=== PATIENT | female | born 1990 | race Caucasian/White ===

== ENCOUNTER → 2017-01-29 | Outpatient (CLI) | payer BC ==
[2017-01-29 17:47] LABS: CH 29.8; CHCM 35.7; HCT 34.6 % (34.0-46.0); HDW 3.06; HGB 12.4 gm/dL (11.4-16.0); MCH 30.2 pg (25.0-35.0); Mean Platelet Volume 8.5; RBC 4.12 m/uL (3.80-5.40); RDW 13.5 % (11.5-15.5); WBC 9.4 k/uL (3.8-10.6)
[2017-01-29 17:57] LABS: Glucose 95 mg/dL (74-99); Non-African American GFR(MDRD) >60 (>60 ml/min/1.73 sqM)
== END | disposition home or self-care (01) ==
LOC: LABWHC1 17:31
PROVIDERS: ATTEND Obstetrics & Gynecology
DX: Z34.80 Encounter for supervision of other normal pregnancy, unspecified trimester (principal)
CPT/HCPCS: 36415; 82565; 82947; 85027; 86762; 86780; 86850; 86900; 86901; 87340

== ENCOUNTER → 2017-02-07 | Outpatient (CLI) | payer BC ==
--- NOTE | 2017-02-08 07:16 | US ---
EXAMINATION TYPE: US OB anatomy transabd DATE OF EXAM: 02/07/2017 4:59 PM COMPARISON: NONE HISTORY: O36.62X0 Large for Dates TECHNIQUE: Transabdominal (TA) EXAM MEASUREMENTS: GESTATIONAL AGE / DATING Physician Established: (17 weeks/5 days) EDC: 07/13/2017 Dates by LMP: (17 weeks/5 days) EDC: 07/13/2017 Dates by First Scan: no previous Dates by Current Scan for: (18 weeks/3 days) EDC: 07/08/2017 SURVEY IUP: Single PLACENTA: Anterior PREVIA: No previa COLT: 12.4 cm Normal CERVICAL LENGTH (transabdominal: norm > 3.0cm): 3.2 cm BIOMETRY PRESENTATION: Variable LIE: Oblique BPD: 4.3 cm 18 weeks / 6 days HC: 15.0 cm 18 weeks / 1 days AC: 12.5 cm 18 weeks / 1 days FL: 2.8 cm 18 weeks / 4 days ESTIMATED WEIGHT IN GRAMS: 235 grams ESTIMATED WEIGHT IN LBS/OZS: 0 lbs. 8 oz. WEIGHT PERCENTAGE BASED ON ESTABLISHED DATE: 82 % HC/AC: 1.2 FL/AC: 22 HEART RATE: 157 bpm RHYTHM: Normal ANATOMY SEEN (within normal limits): * Lateral Vent (< 1 cm) 0.7 cm * Cisterna Magna (< 1.1 cm) 0.4 cm * Nuchal Fold (< 0.6 cm) 0.4 cm * Cerebellum (varies with age) 1.9 cm Choroid Plexus (bilateral) Midline Falx Cavus Septi Pellucidi Four Chamber Heart Outflow tracts: LVOT/ Stomach Situs Nose / Lips not well seen Diaphragm Kidneys (bilateral) Bladder Cord Insert Three Vessel Cord Longitudinal Spine Transverse Spine Arms (bilateral) Legs (bilateral) ANATOMY NOT SEEN: RVOT positional, lips and nose not well seen Growth congruent with gestation of 18 + weeks. Call back for lips and nose, RVOT IMPRESSION: Single viable intrauterine corresponding to an ultrasound age dated 18 weeks 3 days with es timated date of delivery 08 July 2017 by today's exam. Somewhat limited survey.
== END | disposition home or self-care (01) ==
LOC: RADUSWWP 16:16
PROVIDERS: ATTEND Obstetrics & Gynecology
DX: O36.62X0 Maternal care for excessive fetal growth, second trimester, not applicable or unspecified (principal); Z3A.18 18 weeks gestation of pregnancy
CPT/HCPCS: 76811

== ENCOUNTER → 2017-03-14 | Outpatient (CLI) | payer BC ==
--- NOTE | 2017-03-15 12:02 | US ---
EXAMINATION TYPE: US OB anatomy transabd DATE OF EXAM: 03/14/2017 5:23 PM COMPARISON: NONE HISTORY: Z36 Re-eval TECHNIQUE: Transabdominal (TA) EXAM MEASUREMENTS: GESTATIONAL AGE / DATING Physician Established: (23 weeks/3 days) EDC: 07/08/17 Dates by LMP: (22 weeks/5 days) EDC: 07/13/17 Dates by First Scan: Not available Dates by Current Scan for: (22 weeks/5 days) EDC: 07/13/17 SURVEY IUP: Single PLACENTA: fundal/anterior PREVIA: No previa COLT: 13.3 cm CERVICAL LENGTH (transabdominal: norm > 3.0cm): 3.4 cm BIOMETRY PRESENTATION: Vertex BPD: 5.5 cm 22 weeks / 5 days HC: 20.7 cm 22 weeks / 6 days AC: 18.2 cm 23 weeks / 0 days FL: 4.1 cm 23 weeks / 2 days ESTIMATED WEIGHT IN GRAMS: 561 grams ESTIMATED WEIGHT IN LBS/OZS: 1 lbs. 4 oz. WEIGHT PERCENTAGE BASED ON ESTABLISHED DATE: 26 % HC/AC: 1.1 FL/AC: 22.5 HEART RATE: 162 bpm RHYTHM: Normal ANATOMY SEEN (within normal limits): * Cisterna Magna (< 1.1 cm) 0.5 cm * Nuchal Fold (< 0.6 cm) 0.4 cm * Cerebellum (varies with age) 2.3 cm Midline Falx Four Chamber Heart RVOT Stomach Nose / Lips Diaphragm Kidneys (bilateral) Bladder Cord Insert Three Vessel Cord Longitudinal Spine Transverse Spine ANATOMY NOT SEEN: Very active fetus, position * Lateral Vent (< 1 cm) cm Choroid Plexus (bilateral) Arms (bilateral) Legs (bilateral) Situs LVOT Cavus Septi Pellucidi IMPRESSION: Single viable uterine .
== END | disposition home or self-care (01) ==
LOC: RADUSWWP 16:26
PROVIDERS: ATTEND Obstetrics & Gynecology
DX: Z36 Encounter for antenatal screening of mother (principal); Z3A.22 22 weeks gestation of pregnancy
CPT/HCPCS: 76811

== ENCOUNTER → 2017-04-12 | Outpatient (CLI) | payer BC ==
[2017-04-12 08:09] LABS: CH 28.9; CHCM 34.9; HCT 32.7 % (34.0-46.0); HDW 3.68; HGB 11.5 gm/dL (11.4-16.0); MCH 29.1 pg (25.0-35.0); MCV 83.1 fL (80.0-100.0); Mean Platelet Volume 7.9; Poikilocytosis Slight; RBC 3.94 m/uL (3.80-5.40); WBC 9.6 k/uL (3.8-10.6)
== END | disposition home or self-care (01) ==
LOC: LABWHC1 06:30
PROVIDERS: ATTEND Obstetrics & Gynecology
DX: Z34.92 Encounter for supervision of normal pregnancy, unspecified, second trimester (principal)
CPT/HCPCS: 36415; 82950; 85027

== ENCOUNTER → 2017-04-18 | Outpatient (CLI) | payer BC ==
[2017-04-18 12:22] LABS: Glucose 3 Hour, Gest 110 mg/dL
== END | disposition home or self-care (01) ==
LOC: LABWHC1 07:51
PROVIDERS: ATTEND Obstetrics & Gynecology
DX: O99.810 Abnormal glucose complicating pregnancy (principal); Z3A.00 Weeks of gestation of pregnancy not specified
CPT/HCPCS: 36415; 82951; 82952

== ENCOUNTER 2017-05-09 21:00 | Outpatient (CLI) | payer BC | END 2017-05-09 22:10 | disposition home or self-care (01) | LOC: FBPOP 21:00 | PROVIDERS: ATTEND Obstetrics & Gynecology | DX: O36.8130 Decreased fetal movements, third trimester, not applicable or unspecified (principal); Z3A.31 31 weeks gestation of pregnancy | CPT/HCPCS: 59025; 99213 ==

== ENCOUNTER 2017-06-03 19:31 | Outpatient (CLI) | payer BC ==
[2017-06-03 19:58] LABS: Amorphous Sediment,Urine Few /hpf; Appearance,Urine Cloudy (Clear); Bilirubin,Urine Negative (Negative); Glucose,Urine (UA) Negative (Negative); Ketones,Urine Negative (Negative); Leukocyte Esterase,Urine Negative (Negative); Nitrite,Urine Negative (Negative); PH, Urine 6.5 (5.0-8.0); Particle Count 11406; Protein,Urine Negative (Negative); RBC,Urine 1 /hpf (0-5); Specific Gravity,Urine 1.001 (1.001-1.035); Squamous Epithelial Cell,Urine 10 /hpf (0-4); UA Billing (MACRO vs. MICRO) MICRO; Urobilinogen,Urine <2.0 mg/dL (<2.0); WBC,Urine 3 /hpf (0-5)
--- NOTE | 2017-06-04 06:32 | P.MSEPDOC ---
Presenting Problems - Arrival Data Date of Arrival on Unit: 06/03/17 Time of Arrival on Unit: 19:31 Mode of Transport: Ambulatory - Complaint OB-Reason for Admission/Chief Complaint: Observation/Evaluation, Signs/Symptoms UTI Comment: cramping since yesterday Medical History - Information : 3 Para: 1 Term: 1 : 0 Abortions: Spontaneous or Elective: 1 Number of Living Children: 1 - Gestational Age Expected Date of Delivery: 07/05/17 Gestational Age by YUKI (wks/days): 35 Weeks and 4 Days Review of Systems - Review of Systems Constitutional: No problems Breast: No problems ENT: No problems Cardiovascular: No problems Respiratory: No problems Gastrointestinal: No problems Genitourinary: No problems Musculoskeletal: No problems Neurological: No problems Skin: No problems Medical Screen Scoring (Pre) - Cervical Exam Dilation: 0 cm = 0 Membranes: Intact - Uterine Contractions Frequency: > 5 minutes apart = 1 Duration: N/A Intensity: N/A - Maternal Vital Signs Maternal Temperature: N/A Maternal Blood Pressure: N/A Signs of Preeclampsia: N/A Maternal Respirations: N/A - Maternal Trauma Maternal Trauma: N/A - Assessment Baseline FHR: 145 Heart Rate - NICHD Category: Category I (Normal) = 0 NST: Reactive - Total Score Total Score (Pre): 1 - Level of Risk Level of Risk: Low (0-5) Physician Notification (Pre) - Physician Notified Physician Notified Date: 06/03/17 Physician Notified Time: 20:14 Physician/Practitioner Notifed:: Dr Crawford New Order Received: Yes (d/c home) Disposition - Disposition OB Disposition: Discharge to home, Written follow up instructions reviewed Discharge Date: 06/03/17 Discharge Time: 20:20 I agree with the RN Medical Screening Exam: Yes Risk & Benefit of care provided described in d/c instruction: Yes Diagnosis: FALSE LABOR BEFORE 37 COMPLETED WEEKS OF GEST, THIRD TRI
== END 2017-06-03 20:20 | disposition home or self-care (01) ==
LOC: FBPOP 19:31
PROVIDERS: ATTEND Obstetrics & Gynecology
DX: O47.03 False labor before 37 completed weeks of gestation, third trimester (principal); Z3A.35 35 weeks gestation of pregnancy
CPT/HCPCS: 59025; 81001; 99213

== ENCOUNTER 2017-06-30 20:02 | Inpatient (IN) | payer BC ==
[2017-06-30 20:39] LABS: Basophils % (A) 0 %; CH 25.8; CHCM 33.1; Eosinophils # (A) 0.1 k/uL (0-0.7); Eosinophils % (A) 1 %; HCT 31.5 % (34.0-46.0); HDW 3.42; HGB 10.2 gm/dL (11.4-16.0); Hypochromasia Slight; Luc # (Auto) 0.15; Luc % (Auto) 2; Lymphocytes # (A) 1.5 k/uL (1.0-4.8); Lymphocytes % (A) 19 %; MCH 25.2 pg (25.0-35.0); MCHC 32.3 g/dL (31.0-37.0); MCV 78.2 fL (80.0-100.0); Mean Platelet Volume 10.4; Monocytes # (A) 0.3 k/uL (0-1.0); Monocytes % (A) 4 %; Neutrophils # (A) 6.1 k/uL (1.3-7.7); Neutrophils % (A) 74 %; Poikilocytosis Slight; RBC 4.03 m/uL (3.80-5.40); RDW 14.9 % (11.5-15.5); WBC 8.2 k/uL (3.8-10.6); WBC (Perox) 8.59
[2017-06-30 20:48] LABS: ALT 40 U/L (9-52); AST 26 U/L (14-36); Blood Urea Nitrogen 9 mg/dL (7-17); LDH 414 U/L (313-618); Non-African American GFR(MDRD) >60 (>60 ml/min/1.73 sqM); Uric Acid 4.9 mg/dL (3.7-7.4)
[2017-06-30 21:00] LABS: Appearance,Urine Turbid (Clear); Bacteria,Urine Rare /hpf; Bilirubin,Urine Negative (Negative); Glucose,Urine (UA) Negative (Negative); Ketones,Urine Negative (Negative); Leukocyte Esterase,Urine Trace (Negative); Mucus,Urine Rare /hpf; Nitrite,Urine Negative (Negative); Particle Count 36579; Protein,Urine Trace (Negative); Specific Gravity,Urine 1.013 (1.001-1.035); Squamous Epithelial Cell,Urine 9 /hpf (0-4); UA Billing (MACRO vs. MICRO) MICRO; Urobilinogen,Urine <2.0 mg/dL (<2.0)
[2017-06-30] MEDS ORDERED: TERBUTALINE 1 MG/ML VIAL SQ PRN (22:29)
[2017-06-30] MEDS ORDERED: LIDOCAINE 1% (PF) 10 MG/ML (30 ML SDV) SQ PRN (22:29)
[2017-06-30] MEDS ORDERED: CARBOPROST TROMETHAMINE 250 MCG/ML 1 ML AMP IM PRN (22:29)
[2017-06-30] MEDS ORDERED: METHYLERGONOVINE 0.2 MG/ML 1 ML AMP IM PRN (22:29)
[2017-06-30] MEDS ORDERED: ACETAMINOPHEN TAB 500 MG TAB PO PRN (22:34)
[2017-06-30 22:55] LABS: INR 0.9 (<1.2); Partial Thromboplastin Time 22.3 sec (22.0-30.0); Prothrombin Time 9.3 sec (9.0-12.0)
[2017-07-01] MEDS ORDERED: CALCIUM CARBONATE 500 MG CHEWABLE PO PRN (02:41)
[2017-07-01] MEDS ORDERED: OXYTOCIN 20 UNITS/1000 ML NS 1,000 ML IV SCH (06:00)
[2017-07-01] MEDS ORDERED: OXYTOCIN 10 UNIT/ML 1 ML VIAL IM PRN (06:00)
[2017-07-01] MEDS: LACTATED RINGERS 1,000 ML IV SCH ×3 (06:07→15:33)
[2017-07-01] MEDS ORDERED: BUTORPHANOL 1 MG/ML 1 ML VIAL IV PRN (13:16)
[2017-07-01] MEDS ORDERED: SODIUM CHLORIDE 0.9% 100 ML BAG ONE (14:55)
[2017-07-01] MEDS ORDERED: fentaNYL (PF) 50 MCG/ML 5 ML AMP ONE (14:55)
[2017-07-01] MEDS ORDERED: BUPIVACAINE (PF) 0.25% 30 ML VIAL ONE (14:55)
[2017-07-01] MEDS ORDERED: BUPIVACAINE (PF) 0.25% 25 ML, fentaNYL (PF) 200 MCG in SODIUM CHLORIDE 0.9% 71 ML EPIDURAL ONE (15:13)
[2017-07-01] MEDS ORDERED: BISACODYL 10 MG SUPP RECTAL PRN (17:32)
[2017-07-01] MEDS ORDERED: SIMETHICONE 80 MG CHEWABLE PO PRN (17:32)
[2017-07-01] MEDS ORDERED: diphenhydrAMINE 50 MG CAP PO PRN (17:32)
[2017-07-01] MEDS ORDERED: HYDROCORTISONE 2.5% RECTAL CREAM 30 GM TUBE RECTAL PRN (17:32)
[2017-07-01] MEDS ORDERED: ZOLPIDEM 5 MG TAB PO PRN (17:32)
[2017-07-01] MEDS ORDERED: ACETAMINOPHEN TAB 325 MG TAB PO PRN (17:32)
[2017-07-01] MEDS ORDERED: BENZOCAINE/MENTHOL SPRAY 1 GM/SPRAY AEROSOL TOPICAL PRN (17:32)
[2017-07-01] MEDS ORDERED: diphenhydrAMINE 25 MG CAP PO PRN (17:32)
[2017-07-01] MEDS ORDERED: LANOLIN CREAM 5 GM TUBE TOPICAL PRN (17:32)
[2017-07-01] MEDS ORDERED: diphenhydrAMINE 50 MG/ML 1 ML VIAL IVP PRN ×2 (17:32)
[2017-07-01] MEDS ORDERED: WITCH HAZEL 1 EACH MED..PAD TOPICAL PRN (17:32)
[2017-07-01] MEDS ORDERED: Acetaminophen-Codeine 300-30mg TAB PO PRN ×2 (17:32)
--- NOTE | 2017-07-01 17:36 | P.HPOB ---
History of Present Illness H&P Date: 07/01/17 Chief Complaint: Intrauterine at term: Gestational hypertension Tiffanie is a 27-year-old female at 38 weeks gestation who noted that her blood pressure was elevated while working yesterday. Due to a persistent headache she came into labor and delivery where her initial blood pressure was noted be elevated slightly at 150/80 subsequent blood pressures were all normal. However due to her headache and term we decided to keep her for 2 hours to continue monitoring her and were preeclamptic labs. All the labs were normal however just short of the two-hour vernon she did have 2 blood pressures were elevated in the 140/70-80 range. Therefore she was admitted for plan for induction of labor in the morning since it was already after 10:00 at night when these came in. I did discuss the option of starting an induction during the night that with her blood pressure stable and her headache resolving without any medication the decision to wait until morning was made with the understanding that should her blood pressures continued to go up or changes that we would start induction early. We did start induction with Pitocin and then artificial rupture of membranes was performed clear fluid noted. She was dilated to 1/2 cm 80% effaced -3 station. heart tones were in the 130s and reactive. Her course otherwise was unremarkable. She denied any medical problems during the other than some sciatic nerve pain. Pertinent labs include A+ blood type Rh antibody negative rubella, immune, hepatitis B surface antigen/RPR/HIV all negative. Physical exam vital signs are stable and afebrile. Heart regular, lungs clear, extremities without pain. Osteopathic exams unremarkable. Assessment intrauterine at term with gestational hypertension. Plan expect spontaneous vaginal delivery. She plans to use an epidural for analgesia. Past Medical History Past Medical History: No Reported History History of Any Multi-Drug Resistant Organisms: None Reported Past Surgical History: No Surgical Hx Reported Past Anesthesia/Blood Transfusion Reactions: No Reported Reaction Past Psychological History: Anxiety Smoking Status: Never smoker Past Alcohol Use History: Occasional Past Drug Use History: None Reported - Past Family History Mother Family Medical History: Cancer Additional Family Medical History / Comment(s): thyroid cancer Medications and Allergies Home Medications Medication Instructions Recorded Confirmed Type RX: Ulj-Vbpw-Expeo Acid 1 tab PO DAILY 05/09/17 06/30/17 History [-U Capsule (formulary)] Allergies Allergy/AdvReac Type Severity Reaction Status Date / Time No Known Allergies Allergy Verified 06/30/17 20:10 Exam Osteopathic Statement: *. No significant issues noted on an osteopathic structural exam other than those noted in the History and Physical/Consult. - Vital Signs Vital signs: Vital Signs Temp Pulse Resp BP 06/30/17 23:00 97.4 F L 90 18 141/87 06/30/17 20:20 97 18 133/76 Intake and Output 07/01/17 07/01/17 07/01/17 06:59 14:59 22:59 Intake Total 1000 Balance 1000 Intake: IV 1000 Lactated Ringers 1,000 ml 1000 @ 125 mls/hr IV .Q8H CARMELO Rx#:[id number] Other: Voiding Method Toilet # Voids 3 1 Results Result Diagrams: 06/30/17 20:30 06/30/17 20:30 Abnormal Lab Results - Last 24 Hours (Table) 06/30/17 06/30/17 Range/Units 20:30 20:49 Hgb 10.2 L (11.4-16.0) gm/dL Hct 31.5 L (34.0-46.0) % MCV 78.2 L (80.0-100.0) fL Urine Appearance Turbid H (Clear) Urine Protein Trace H (Negative) Ur Leukocyte Esterase Trace H (Negative) Ur Squamous Epith Cells 9 H (0-4) /hpf Urine Bacteria Rare H (None) /hpf Urine Mucus Rare H (None) /hpf Urine Yeast (Budding) Few H (None) /hpf
--- NOTE | 2017-07-01 17:37 | P.PROBDLV ---
Vaginal Delivery Note - . Vaginal Delivery Note: Patient progressed to complete and pushing with spontaneous vaginal delivery of a viable female over a second-degree perineal laceration. Falling deliver the head interim posterior shoulders were easily delivered with gentle downward and upward traction followed by the remainder the baby. Mouth nares were then bulb suctioned and was placed on mother's abdomen where the umbilical cord was allowed to pulsate for 30 seconds prior to clamping and cutting. Once this was accomplished nursery personnel was present to assume care and placenta was then delivered intact. Pitocin was added to the IV. scores were 9 and 9 at one and 5 minutes respectively and the weight is pending but both mother and baby appear stable following delivery.
[2017-07-02] MEDS: SENNOSIDES-DOCUSATE SODIUM 1 EACH TAB PO SCH ×2 (00:58→08:16)
[2017-07-02] MEDS: IBUPROFEN 600 MG TAB PO PRN ×2 (02:14→16:32)
[2017-07-02 04:19] VITALS: RESP 16
[2017-07-02] MEDS: LACTATED RINGERS 1,000 ML IV SCH (07:11)
--- NOTE | 2017-07-02 08:56 | P.DS ---
Providers Date of admission: 06/30/17 22:26 Expected date of discharge: 07/02/17 Attending physician: Keke Forrest Primary care physician: Stated None Hospital Course: This is a 27-year-old female 4 para 1 at 38-5/7 weeks who presented with symptoms of -induced hypertension with headache and slightly elevated blood pressures. She was observed overnight and then oxytocin induction of labor was carried out on 07/01/2017. She delivered a viable female infant with scores of 9 at 1 minute and 9 at 5 minutes and weight of 7 lbs. 0 oz. on 07/01/2017. Her course is been essentially uncomplicated. Blood pressures have come down to normal. She denies any headache or blurry vision at this time. Lochia is decreasing. She is breast-feeding. Pain is fairly well controlled. Vital signs are stable. Abdomen is soft with fundus firm and nontender. Extremities show negative Homans. Impression is status post vaginal delivery day #1. Plan is to discharge home today. Routine instructions are given. She will be given a prescription for ibuprofen. She is advised follow-up in 6 weeks in the office for a check. She is advised to call the office if she has any further questions or concerns prior to her appointment time. Procedures: Oxytocin induction of labor Spontaneous vaginal delivery of a viable female infant on 07/01/2017 Patient Condition at Discharge: Stable Plan - Discharge Summary New Discharge Prescriptions: New Ibuprofen [Motrin] 600 mg PO Q6HR PRN #60 tab PRN Reason: Mild Pain Or Fever >= 100.5 Continue Wse-Hxuy-Dnrja Acid [-U Capsule (formulary)] 1 tab PO DAILY Discharge Medication List Ebe-Adfu-Tbutb Acid [-U Capsule (formulary)] 1 tab PO DAILY [History] Ibuprofen [Motrin] 600 mg PO Q6HR PRN #60 tab 07/02/17 [Rx] Follow up Appointment(s)/Referral(s): Keke Forrest DO [Doctor of Osteopathic Medicine] - 6 Weeks Activity/Diet/Wound Care/Special Instructions: Instructions 1. Do not begin any exercise program for 3 weeks. 2. Do not resume sexual relations for 3 weeks or longer if uncomfortable. 3. You may take tub baths or showers at any time. 4. You may use tampons if desired after 3 weeks. 5. Keep the area of episiotomy (stitches) clean and dry. 6. If you are not nursing, wear a good fitting, supportive bra during the day and limit fluid intake for at least 1 week to prevent breast engorgement. 7. Call the office, [phone], within the next week to make appointment for your 6 week checkup if it has not already been made. 8. Report any of the following occurrences to the doctor promptly: a. Heavy, excessive bleeding b. Chills, fever c. Burning or frequency of urination d. Pain or redness and breasts if nursing e. Increasing pain or swelling in episiotomy (stitches). In addition to the above instructions, the following additional should be followed: 1. No heavy lifting or straining (exercising) until after 6 week checkup. 2. Keep abdominal incision clean and dry: You may wear a dressing if more comfortable. 3. Make office appointment for 10 days after going home or as instructed by her doctor. Discharge Disposition: HOME SELF-CARE
[2017-07-02 09:27] VITALS: BP 136/72; PULSE 90; TEMP 98.2
--- NOTE | 2017-07-04 17:36 | P.MSEPDOC ---
Presenting Problems - Arrival Data Date of Arrival on Unit: 06/30/17 Time of Arrival on Unit: 22:20 Mode of Transport: Wheelchair - Complaint OB-Reason for Admission/Chief Complaint: Headache, Pain, Elevated Blood Pressure Comment: cramping, headache, and elevated bp's Medical History - Information : 3 Para: 1 Term: 1 : 0 Abortions: Spontaneous or Elective: 1 Number of Living Children: 1 - Gestational Age Expected Date of Delivery: 07/09/17 Gestational Age by YUKI (wks/days): 39 Weeks and 2 Days Review of Systems - Review of Systems Constitutional: No problems Breast: No problems ENT: No problems Cardiovascular: No problems Respiratory: No problems Gastrointestinal: No problems Genitourinary: No problems Musculoskeletal: No problems Neurological: No problems Skin: No problems Vital Signs - Temperature Temperature: 98.2 F Temperature Source: Oral - Pulse Right Brachial Pulse Rate: 90 Pulse Assessment Method: Automatic Cuff Left Brachial Pulse Rate: 80 Pulse Assessment Method: Auscultation - Respirations Respiratory Rate: 16 Oxygen Delivery Method: Room Air - Blood Pressure Right Arm Blood Pressure: 136/72 Blood Pressure Mean: 93 Blood Pressure Source: Automatic Cuff Left Arm Blood Pressure: 141/80 Blood Pressure Mean: 100 Blood Pressure Source: Automatic Cuff - Comment Vital Signs Comment: Pulse rate at last recovery check was 131, after massaging fundus, pulse rate went down to 112. Bleeding small-medium and fundus firm. Medical Screen Scoring (Pre) - Cervical Exam Dilation: 1-3 cm = 1 Effacement: More than 50% = 2 Membranes: Intact - Uterine Contractions Frequency: > 5 minutes apart = 1 Duration: N/A Intensity: N/A - Maternal Vital Signs Maternal Blood Pressure: Systolic >139 = 2 Signs of Preeclampsia: Headache = 1 Maternal Respirations: N/A - Maternal Trauma Maternal Trauma: N/A - Assessment Baseline FHR: 130 Heart Rate - NICHD Category: Category I (Normal) = 0 NST: Reactive Position: N/A Station: N/A - Total Score Total Score (Pre): 7 - Level of Risk Level of Risk: Medium (6-9) Physician Notification (Pre) - Physician Notified Physician Notified Date: 06/30/17 Physician Notified Time: 20:20 Physician/Practitioner Notifed:: Dr. Romo Spoke With: Dr. Kuester New Order Received: Yes - Notification Comment Comment: obtain PIH labs Medical Screen Scoring (Post) - Cervical Exam Dilation: 1-3 cm = 1 Effacement: More than 50% = 2 Membranes: Intact - Uterine Contractions Frequency: N/A Duration: N/A Intensity: N/A - Maternal Vital Signs Maternal Temperature: N/A Maternal Blood Pressure: Systolic >139 = 2 Signs of Preeclampsia: Headache = 1 Maternal Respirations: N/A - Maternal Trauma Maternal Trauma: N/A - Assessment Heart Rate: 140 Heart Rate - NICHD Category: Category I (Normal) = 0 NST: Reactive Position: N/A Station: N/A - Total Score Total Score (Post): 6 Physician Notification (Post) - Physician Notified Physician Notified Date: 06/30/17 Physician Notified Time: 22:20 Physician/Practitioner Notified:: Dr. Romo Spoke With: Dr. Romo New Order Received: Yes - Notification Comment Comment: admit for induction of labor in am for pre eclampsia based on bp protocol Disposition - Disposition OB Disposition: Admit, LDRP Suite Discharge Date: 07/02/17 Discharge Time: 18:00 I agree with the RN Medical Screening Exam: Yes Risk & Benefit of care provided described in d/c instruction: Yes Diagnosis: GESTATIONAL HTN W/O SIGNIFICANT PROTEINURIA, THIRD TRIMESTER
== END 2017-07-02 18:00 | disposition home or self-care (01) | DRG 775 ==
LOC: FBPOP 20:02 → 4FBP 22:26
PROVIDERS: ADMIT Obstetrics & Gynecology; ATTEND Obstetrics & Gynecology
PROC: 10E0XZZ Delivery of Products of Conception, External Approach (ICD-10-PCS; principal; 2017-07-01)
PROC: 0KQM0ZZ Repair Perineum Muscle, Open Approach (ICD-10-PCS; 2017-07-01)
PROC: 3E033VJ Introduction of Other Hormone into Peripheral Vein, Percutaneous Approach (ICD-10-PCS; 2017-07-01)
PROC: 10907ZC Drainage of Amniotic Fluid, Therapeutic from Products of Conception, Via Natural or Artificial Opening (ICD-10-PCS; 2017-07-01)
DX: O13.4 Gestational [pregnancy-induced] hypertension without significant proteinuria, complicating childbirth (principal); O99.344 Other mental disorders complicating childbirth; F41.9 Anxiety disorder, unspecified; Z37.0 Single live birth; O70.1 Second degree perineal laceration during delivery; Z3A.38 38 weeks gestation of pregnancy; Z80.8 Family history of malignant neoplasm of other organs or systems
CPT/HCPCS: 59025; 81001; 82565; 83615; 84450; 84460; 84520; 84550; 85025; 85610; 85730; 88307; 99215

== ENCOUNTER 2019-06-22 15:32 | Observation (INO) | payer BC, MEDICAID ==
[2019-06-22] MEDS ORDERED: ACETAMINOPHEN TAB 325 MG TAB PO STA (16:00)
[2019-06-22 16:16] LABS: Basophils % (A) 0 %; Eosinophils # (A) 0.2 k/uL (0-0.7); Eosinophils % (A) 2 %; HCT 39.1 % (34.0-46.0); HGB 13.3 gm/dL (11.4-16.0); Lymphocytes # (A) 1.8 k/uL (1.0-4.8); Lymphocytes % (A) 29 %; MCH 28.6 pg (25.0-35.0); MCV 84.1 fL (80.0-100.0); Monocytes # (A) 0.3 k/uL (0-1.0); Monocytes % (A) 5 %; Neutrophils # (A) 3.9 k/uL (1.3-7.7); Neutrophils % (A) 63 %; Platelet Count 199 k/uL (150-450); RBC 4.65 m/uL (3.80-5.40); RDW 13.5 % (11.5-15.5); WBC 6.2 k/uL (3.8-10.6)
[2019-06-22 16:20] LABS: Appearance,Urine Cloudy (Clear); Bilirubin,Urine Negative (Negative); Blood,Urine Large (Negative); Color,Urine Yellow; Glucose,Urine (UA) Negative (Negative); Ketones,Urine Negative (Negative); Leukocyte Esterase,Urine Large (Negative); Mucus,Urine Rare /hpf; Nitrite,Urine Negative (Negative); PH, Urine 6.5 (5.0-8.0); Protein,Urine 1+ (Negative); RBC,Urine 15 /hpf (0-5); Specific Gravity,Urine 1.023 (1.001-1.035); Squamous Epithelial Cell,Urine 42 /hpf (0-4); Urobilinogen,Urine <2.0 mg/dL (<2.0); WBC,Urine 40 /hpf (0-5)
[2019-06-22 16:26] LABS: ALT 28 U/L (9-52); AST 30 U/L (14-36); African American GFR (CKD) >90 (>60 ml/min/1.73 sqM); Albumin 4.1 g/dL (3.5-5.0); Alkaline Phosphatase 50 U/L (38-126); Anion Gap 9 mmol/L; Blood Urea Nitrogen 10 mg/dL (7-17); Calcium 9.1 mg/dL (8.4-10.2); Carbon Dioxide 21 mmol/L (22-30); Chloride 107 mmol/L (98-107); Glucose 116 mg/dL (74-99); Potassium 3.9 mmol/L (3.5-5.1); Sodium 137 mmol/L (137-145); Total Bilirubin 0.5 mg/dL (0.2-1.3)
[2019-06-22 16:41] LABS: HCG,Quantitative Serum 945.2 mIU/mL
--- NOTE | 2019-06-22 17:16 | ED ---
Female Urogenital HPI - General Chief complaint: Vaginal Bleeding Stated complaint: Cramping, Time Seen by Provider: 06/22/19 15:38 Source: patient Mode of arrival: ambulatory Limitations: no limitations - History of Present Illness Initial comments: 29-year-old female A1 last menstrual period 05/12/2019 presented today for chief complaint of vaginal bleeding in x 2 hours. Patient states she had a positive test on June 14. Patient states she had some spotting around June 12 prior to positive test however no pain. Patient states that she had multiple subsequent positive tests. She states today around 12:50 she began experiencing sharp lower pelvic pain. She states it was on the right radiating over towards the left. Patient denies headache vaginal bleeding to size dysuria or urgency frequency hematuria. Patient states she does have a small amount of low back pain. Patient denies dizziness or lightheaded sensation. Patient states she last ate at 2 PM. Remaining review of systems negative. Patient has not had an outpatient ultrasound to confirm IUP. - Related Data Previous Rx's Medication Instructions Recorded HYDROcodone/APAP 5-325MG [Orosi 1 tab PO Q4HR PRN 3 Days #18 tab 06/22/19 5-325] Allergies Allergy/AdvReac Type Severity Reaction Status Date / Time No Known Allergies Allergy Verified 06/22/19 17:59 Review of Systems ROS Statement: Those systems with pertinent positive or pertinent negative responses have been documented in the HPI. ROS Other: All systems not noted in ROS Statement are negative. Past Medical History Past Medical History: No Reported History History of Any Multi-Drug Resistant Organisms: None Reported Past Surgical History: No Surgical Hx Reported Past Anesthesia/Blood Transfusion Reactions: No Reported Reaction Past Psychological History: Anxiety Smoking Status: Never smoker Past Alcohol Use History: Occasional Past Drug Use History: None Reported - Past Family History Mother Family Medical History: Cancer Additional Family Medical History / Comment(s): thyroid cancer General Exam - General Exam Comments Initial Comments: General: The patient is awake and alert, in no distress, and does not appear acutely ill. Eye: Pupils are equal, round and reactive to light, extra-ocular movements are intact. No nystagmus. There is normal conjunctiva bilaterally. No signs of icterus. Cardiovascular: There is a regular rate and rhythm. No murmur, rub or gallop is appreciated. Respiratory: Lungs are clear to auscultation, respirations are non-labored, breath sounds are equal. No wheezes, stridor, rales, or rhonchi. Gastrointestinal: Soft, non-distended, tender abdomen without masses or organomegaly noted. Some rebound tenderness noted. Bowel sounds are unremarkable. Musculoskeletal: Normal ROM, no tenderness. Strength 5/5. Sensation intact. Radial pulses equal bilaterally 2+. Neurological: A&O x 3. CN II-XII intact grossly, There are no obvious motor or sensory deficits. Coordination appears grossly intact. Speech is normal. Skin: Skin is warm and dry and no rashes or lesions are noted. Psychiatric: Cooperative, appropriate mood & affect, normal judgment. Limitations: no limitations Course Vital Signs 06/22/19 06/22/19 15:44 17:29 Temperature 98.2 F Pulse Rate 94 92 Respiratory 16 18 Rate Blood Pressure 172/88 144/90 O2 Sat by Pulse 100 98 Oximetry Medical Decision Making - Medical Decision Making 29-year-old female with positive test outpatient with an IUP. Presents for vaginal bleeding and pain. With patient having no confirmed intrauterine vaginal bleeding and pelvic pain as concern for ectopic . Ultrasound is obtained revealing a left-sided ectopic with free fluid in the posterior cul-de-sac. Patient is hemodynamically stable. A+. OBGYN Dr. Guzman was contacted as soon as I received the critical value. She will call in the OR team as well as anesthesiology. She states that she will perform the pelvic examination. I discussed the findings with the patient she is agreeable with surgical intervention. Last ate at 2 PM, small meal. Patient refuses morphine, she is not writhing in pain. Appears stable. I did discuss the case with attending provider Dr. Connell who is agreeable with this care plan. - Lab Data Result diagrams: 06/22/19 15:52 06/22/19 15:52 Lab Results 06/22/19 06/22/19 06/22/19 Range/Units 15:52 15:52 15:52 WBC 6.2 (3.8-10.6) k/uL RBC 4.65 (3.80-5.40) m/uL Hgb 13.3 (11.4-16.0) gm/dL Hct 39.1 (34.0-46.0) % MCV 84.1 (80.0-100.0) fL MCH 28.6 (25.0-35.0) pg MCHC 34.0 (31.0-37.0) g/dL RDW 13.5 (11.5-15.5) % Plt Count 199 (150-450) k/uL Neutrophils % 63 % Lymphocytes % 29 % Monocytes % 5 % Eosinophils % 2 % Basophils % 0 % Neutrophils # 3.9 (1.3-7.7) k/uL Lymphocytes # 1.8 (1.0-4.8) k/uL Monocytes # 0.3 (0-1.0) k/uL Eosinophils # 0.2 (0-0.7) k/uL Basophils # 0.0 (0-0.2) k/uL Sodium 137 (137-145) mmol/L Potassium 3.9 (3.5-5.1) mmol/L Chloride 107 (98-107) mmol/L Carbon Dioxide 21 L (22-30) mmol/L Anion Gap 9 mmol/L BUN 10 (7-17) mg/dL Creatinine 0.79 (0.52-1.04) mg/dL Est GFR (CKD-EPI)AfAm >90 (>60 ml/min/1.73 sqM) Est GFR (CKD-EPI)NonAf >90 (>60 ml/min/1.73 sqM) Glucose 116 H (74-99) mg/dL Calcium 9.1 (8.4-10.2) mg/dL Total Bilirubin 0.5 (0.2-1.3) mg/dL AST 30 (14-36) U/L ALT 28 (9-52) U/L Alkaline Phosphatase 50 (38-126) U/L Total Protein 7.0 (6.3-8.2) g/dL Albumin 4.1 (3.5-5.0) g/dL HCG, Quant 945.2 mIU/mL Urine Color Urine Appearance (Clear) Urine pH (5.0-8.0) Ur Specific [place] (1.001-1.035) Urine Protein (Negative) Urine Glucose (UA) (Negative) Urine Ketones (Negative) Urine Blood (Negative) Urine Nitrite (Negative) Urine Bilirubin (Negative) Urine Urobilinogen (<2.0) mg/dL Ur Leukocyte Esterase (Negative) Urine RBC (0-5) /hpf Urine WBC (0-5) /hpf Ur Squamous Epith Cells (0-4) /hpf Urine Mucus (None) /hpf Blood Type A Positive Blood Type Recheck No Antibody Screen NEGATIVE Spec Expiration Date 06/25/2019235106/22/19 Range/Units 15:52 WBC (3.8-10.6) k/uL RBC (3.80-5.40) m/uL Hgb (11.4-16.0) gm/dL Hct (34.0-46.0) % MCV (80.0-100.0) fL MCH (25.0-35.0) pg MCHC (31.0-37.0) g/dL RDW (11.5-15.5) % Plt Count (150-450) k/uL Neutrophils % % Lymphocytes % % Monocytes % % Eosinophils % % Basophils % % Neutrophils # (1.3-7.7) k/uL Lymphocytes # (1.0-4.8) k/uL Monocytes # (0-1.0) k/uL Eosinophils # (0-0.7) k/uL Basophils # (0-0.2) k/uL Sodium (137-145) mmol/L Potassium (3.5-5.1) mmol/L Chloride (98-107) mmol/L Carbon Dioxide (22-30) mmol/L Anion Gap mmol/L BUN (7-17) mg/dL Creatinine (0.52-1.04) mg/dL Est GFR (CKD-EPI)AfAm (>60 ml/min/1.73 sqM) Est GFR (CKD-EPI)NonAf (>60 ml/min/1.73 sqM) Glucose (74-99) mg/dL Calcium (8.4-10.2) mg/dL Total Bilirubin (0.2-1.3) mg/dL AST (14-36) U/L ALT (9-52) U/L Alkaline Phosphatase (38-126) U/L Total Protein (6.3-8.2) g/dL Albumin (3.5-5.0) g/dL HCG, Quant mIU/mL Urine Color Yellow Urine Appearance Cloudy H (Clear) Urine pH 6.5 (5.0-8.0) Ur Specific [place] 1.023 (1.001-1.035) Urine Protein 1+ H (Negative) Urine Glucose (UA) Negative (Negative) Urine Ketones Negative (Negative) Urine Blood Large H (Negative) Urine Nitrite Negative (Negative) Urine Bilirubin Negative (Negative) Urine Urobilinogen <2.0 (<2.0) mg/dL Ur Leukocyte Esterase Large H (Negative) Urine RBC 15 H (0-5) /hpf Urine WBC 40 H (0-5) /hpf Ur Squamous Epith Cells 42 H (0-4) /hpf Urine Mucus Rare H (None) /hpf Blood Type Blood Type Recheck Antibody Screen Spec Expiration Date Disposition Clinical Impression: Ectopic , Pelvic pain Disposition: ADMITTED IP TO THIS HOSP Condition: Stable Prescriptions: HYDROcodone/APAP 5-325MG [Orosi 5-325] 1 tab PO Q4HR PRN 3 Days #18 tab PRN Reason: Pain Is patient prescribed a controlled substance at d/c from ED?: No Referrals: Martín Arvizu MD [Primary Care Provider] - 1-2 days Time of Disposition: 17:28 Decision to Admit Reason: Admit from EC Decision Date: 06/22/19 Decision Time: 17:29
--- NOTE | 2019-06-22 17:21 | US ---
EXAMINATION TYPE: Transabdominal DATE OF EXAM: 06/22/2019 5:00 PM COMPARISON: NONE CLINICAL HISTORY: pain. Today, patient has severe RLQ pain and vaginal bleeding in ; assess for ectopic; EXAM PERFORMED: Transvaginal (TV) and Transabdominal (TA) EXAM MEASUREMENTS: GESTATIONAL AGE / DATING Dates by LMP: 5 ( weeks/6 days) EDC: 02/16/2020 Dates by First Scan: first scan today Dates by Current Scan for: No IUP seen at this time MATERNAL ANATOMY Uterus: 8.3 x 6.1 x 4.6cm Right Ovary: 2.3 x 3.4 x 3.1cm Left Ovary: 4.5 x 4.2 x 2.0cm Post CDS / Adnexa: complex fluid noted in posterior CDS with hyperechoic mass = 3.5 x 2.4 x 2.1cm se en medial to right ovary with vascularity noted within mass; mass is noted medial to right ovary both TA US and TV US Presence of corpus luteal cyst: in left ovary = 1.9 x 2.1 x 1.4cm Presence of subchorionic bleed: no GESTATION / SURVEY Date of LMP: 05/12/2019 Beta HcG (if available): 945.2 mIU/ml No IUP is seen, but possible ectopic is suggested with hyperechoic oval mass noted medial t o right ovary with internal vascularity noted of mass. Tech findings reported to GAURAV Lockhart, in EC at exam's end. JJ IMPRESSION: There is a vascular mass involving the left adnexal region and left ovary suspicious for ectopic preg gary. This measures 19 x 14 x 21 mm. Empty uterus. No evidence of ovarian torsion. Minimal fluid in the cul-de-sac. Exam was discussed with ER physician at 5:20 PM.
--- NOTE | 2019-06-22 17:40 | ED ---
Female Urogenital HPI - General Chief complaint: Vaginal Bleeding Stated complaint: Cramping, Time Seen by Provider: 06/22/19 15:38 Source: patient Mode of arrival: ambulatory Limitations: no limitations - History of Present Illness Initial comments: 29-year-old female A1 with last menstrual period 05/12/2018. He did say she had some spotting on June 12 and a positive test on June 14. Patient states that she has not had any pain or bleeding until 12:50 this afternoon. Patinet states it is crampy/sharp in the right lower aspect of pelvis. She states it radiates towards the left side. - Related Data Home Medications Medication Instructions Recorded Confirmed Hhu-Jlqw-Bvrva Acid 1 tab PO DAILY 05/09/17 06/30/17 [-U Capsule (formulary)] Previous Rx's Medication Instructions Recorded Ibuprofen [Motrin] 600 mg PO Q6HR PRN #60 tab 07/02/17 Allergies Allergy/AdvReac Type Severity Reaction Status Date / Time No Known Allergies Allergy Verified 06/30/17 20:10 Review of Systems ROS Statement: Those systems with pertinent positive or pertinent negative responses have been documented in the HPI. ROS Other: All systems not noted in ROS Statement are negative. Past Medical History Past Medical History: No Reported History History of Any Multi-Drug Resistant Organisms: None Reported Past Surgical History: No Surgical Hx Reported Past Anesthesia/Blood Transfusion Reactions: No Reported Reaction Past Psychological History: Anxiety Smoking Status: Never smoker Past Alcohol Use History: Occasional Past Drug Use History: None Reported - Past Family History Mother Family Medical History: Cancer Additional Family Medical History / Comment(s): thyroid cancer General Exam Limitations: no limitations Course Vital Signs 06/22/19 15:44 Temperature 98.2 F Pulse Rate 94 Respiratory 16 Rate Blood Pressure 172/88 O2 Sat by Pulse 100 Oximetry Medical Decision Making - Lab Data Result diagrams: 06/22/19 15:52 06/22/19 15:52 Lab Results 06/22/19 06/22/19 06/22/19 Range/Units 15:52 15:52 15:52 WBC 6.2 (3.8-10.6) k/uL RBC 4.65 (3.80-5.40) m/uL Hgb 13.3 (11.4-16.0) gm/dL Hct 39.1 (34.0-46.0) % MCV 84.1 (80.0-100.0) fL MCH 28.6 (25.0-35.0) pg MCHC 34.0 (31.0-37.0) g/dL RDW 13.5 (11.5-15.5) % Plt Count 199 (150-450) k/uL Neutrophils % 63 % Lymphocytes % 29 % Monocytes % 5 % Eosinophils % 2 % Basophils % 0 % Neutrophils # 3.9 (1.3-7.7) k/uL Lymphocytes # 1.8 (1.0-4.8) k/uL Monocytes # 0.3 (0-1.0) k/uL Eosinophils # 0.2 (0-0.7) k/uL Basophils # 0.0 (0-0.2) k/uL Sodium 137 (137-145) mmol/L Potassium 3.9 (3.5-5.1) mmol/L Chloride 107 (98-107) mmol/L Carbon Dioxide 21 L (22-30) mmol/L Anion Gap 9 mmol/L BUN 10 (7-17) mg/dL Creatinine 0.79 (0.52-1.04) mg/dL Est GFR (CKD-EPI)AfAm >90 (>60 ml/min/1.73 sqM) Est GFR (CKD-EPI)NonAf >90 (>60 ml/min/1.73 sqM) Glucose 116 H (74-99) mg/dL Calcium 9.1 (8.4-10.2) mg/dL Total Bilirubin 0.5 (0.2-1.3) mg/dL AST 30 (14-36) U/L ALT 28 (9-52) U/L Alkaline Phosphatase 50 (38-126) U/L Total Protein 7.0 (6.3-8.2) g/dL Albumin 4.1 (3.5-5.0) g/dL HCG, Quant 945.2 mIU/mL Urine Color Urine Appearance (Clear) Urine pH (5.0-8.0) Ur Specific [place] (1.001-1.035) Urine Protein (Negative) Urine Glucose (UA) (Negative) Urine Ketones (Negative) Urine Blood (Negative) Urine Nitrite (Negative) Urine Bilirubin (Negative) Urine Urobilinogen (<2.0) mg/dL Ur Leukocyte Esterase (Negative) Urine RBC (0-5) /hpf Urine WBC (0-5) /hpf Ur Squamous Epith Cells (0-4) /hpf Urine Mucus (None) /hpf Blood Type A Positive Blood Type Recheck No Antibody Screen NEGATIVE Spec Expiration Date 06/25/2019 - 235106/22/19 Range/Units 15:52 WBC (3.8-10.6) k/uL RBC (3.80-5.40) m/uL Hgb (11.4-16.0) gm/dL Hct (34.0-46.0) % MCV (80.0-100.0) fL MCH (25.0-35.0) pg MCHC (31.0-37.0) g/dL RDW (11.5-15.5) % Plt Count (150-450) k/uL Neutrophils % % Lymphocytes % % Monocytes % % Eosinophils % % Basophils % % Neutrophils # (1.3-7.7) k/uL Lymphocytes # (1.0-4.8) k/uL Monocytes # (0-1.0) k/uL Eosinophils # (0-0.7) k/uL Basophils # (0-0.2) k/uL Sodium (137-145) mmol/L Potassium (3.5-5.1) mmol/L Chloride (98-107) mmol/L Carbon Dioxide (22-30) mmol/L Anion Gap mmol/L BUN (7-17) mg/dL Creatinine (0.52-1.04) mg/dL Est GFR (CKD-EPI)AfAm (>60 ml/min/1.73 sqM) Est GFR (CKD-EPI)NonAf (>60 ml/min/1.73 sqM) Glucose (74-99) mg/dL Calcium (8.4-10.2) mg/dL Total Bilirubin (0.2-1.3) mg/dL AST (14-36) U/L ALT (9-52) U/L Alkaline Phosphatase (38-126) U/L Total Protein (6.3-8.2) g/dL Albumin (3.5-5.0) g/dL HCG, Quant mIU/mL Urine Color Yellow Urine Appearance Cloudy H (Clear) Urine pH 6.5 (5.0-8.0) Ur Specific [place] 1.023 (1.001-1.035) Urine Protein 1+ H (Negative) Urine Glucose (UA) Negative (Negative) Urine Ketones Negative (Negative) Urine Blood Large H (Negative) Urine Nitrite Negative (Negative) Urine Bilirubin Negative (Negative) Urine Urobilinogen <2.0 (<2.0) mg/dL Ur Leukocyte Esterase Large H (Negative) Urine RBC 15 H (0-5) /hpf Urine WBC 40 H (0-5) /hpf Ur Squamous Epith Cells 42 H (0-4) /hpf Urine Mucus Rare H (None) /hpf Blood Type Blood Type Recheck Antibody Screen Spec Expiration Date Disposition Referrals: Martín Arvizu MD [Primary Care Provider] - 1-2 days
--- NOTE | 2019-06-22 17:46 | P.HPOB ---
History of Present Illness H&P Date: 06/22/19 Chief Complaint: Ectopic This is a 29 yo with known positive urinary test and last menstrual period in May. Patient states she noted increased cramping and vaginal bleeding over the last 2 hours. She had a positive test on June 14. Patient presented to the emergency department ultrasound was obtained and ectopic was diagnosed. Patient is without nausea or vomiting Review of Systems Constitutional: Denies chills, Denies fatigue, Denies fever Ears, nose, mouth and throat: Denies headache Cardiovascular: Denies edema Respiratory: Denies dyspnea Gastrointestinal: Denies nausea, Denies vomiting Genitourinary: Reports Past Medical History Past Medical History: No Reported History History of Any Multi-Drug Resistant Organisms: None Reported Past Surgical History: No Surgical Hx Reported Past Anesthesia/Blood Transfusion Reactions: No Reported Reaction Past Psychological History: Anxiety Smoking Status: Never smoker Past Alcohol Use History: Occasional Past Drug Use History: None Reported - Past Family History Mother Family Medical History: Cancer Additional Family Medical History / Comment(s): thyroid cancer Medications and Allergies Home Medications Medication Instructions Recorded Confirmed Type Ddi-Clhr-Awcai Acid 1 tab PO DAILY 05/09/17 06/30/17 History [-U Capsule (formulary)] Ibuprofen [Motrin] 600 mg PO Q6HR PRN #60 tab 07/02/17 Rx Allergies Allergy/AdvReac Type Severity Reaction Status Date / Time No Known Allergies Allergy Verified 06/30/17 20:10 Exam Osteopathic Statement: *. No significant issues noted on an osteopathic structural exam other than those noted in the History and Physical/Consult. Vital Signs Temp Pulse Resp BP Pulse Ox 06/22/19 17:29 92 18 144/90 98 06/22/19 15:44 98.2 F 94 16 172/88 100 Intake and Output 06/22/19 06/22/19 06/22/19 06:59 14:59 22:59 Other: Weight 88.451 kg Targeted physical exam is performed in this date and boatswain mate a well-nourished well-developed female in no acute distress, breathing is noted to be nonlabored heart has a regular rate and rhythm abdomen is soft and slightly tender on pelvic exam the adnexal masses appreciated. Minimal bleeding is noted in the vaginal vault. Results Result Diagrams: 06/22/19 15:52 06/22/19 15:52 Abnormal Lab Results - Last 24 Hours (Table) 06/22/19 06/22/19 Range/Units 15:52 15:52 Carbon Dioxide 21 L (22-30) mmol/L Glucose 116 H (74-99) mg/dL Urine Appearance Cloudy H (Clear) Urine Protein 1+ H (Negative) Urine Blood Large H (Negative) Ur Leukocyte Esterase Large H (Negative) Urine RBC 15 H (0-5) /hpf Urine WBC 40 H (0-5) /hpf Ur Squamous Epith Cells 42 H (0-4) /hpf Urine Mucus Rare H (None) /hpf Assessment and Plan (1) Ectopic Current Visit: Yes Status: Acute Code(s): O00.90 - UNSPECIFIED ECTOPIC WITHOUT INTRAUTERINE SNOMED Code(s): 02207135 (2) Pelvic pain Current Visit: Yes Status: Acute Code(s): R10.2 - PELVIC AND PERINEAL PAIN SNOMED Code(s): 15421844 Plan: Given ultrasound findings will plan operative laparoscopy with salpingectomy, possible open to complete procedure. Procedures discussed with the patient in detail questions are answered. Expect patient to be able to be discharged home later today and follow up in the office. blood type A pos
[2019-06-22] MEDS ORDERED: NALOXONE 0.4 MG/ML 1 ML VIAL IV PRN (17:49)
[2019-06-22] MEDS ORDERED: MORPHINE SULFATE 4 MG/ML SYRINGE IVP STA (17:55)
[2019-06-22] MEDS ORDERED: SODIUM CHLORIDE 0.9% 1,000 ML IV SCH (18:00)
[2019-06-22] MEDS ORDERED: BUPIVACAINE (PF) 0.25% 30 ML VIAL SQ ONE (18:22)
[2019-06-22] MEDS ORDERED: SUCCINYLCHOLINE CHLORIDE 100 MG/5 ML SYR IV ONE (18:27)
[2019-06-22] MEDS ORDERED: MIDAZOLAM 2 MG/2 ML VIAL ONE (18:27)
[2019-06-22] MEDS ORDERED: ONDANSETRON 4 MG/2 ML VIAL ONE (18:27)
[2019-06-22] MEDS ORDERED: ROCURONIUM BROMIDE 10 MG/ML 10 ML VIAL IV ONE (18:27)
[2019-06-22] MEDS ORDERED: fentaNYL (PF) 50 MCG/ML 2 ML AMP ONE (18:27)
[2019-06-22] MEDS ORDERED: SODIUM CHLORIDE 0.9% 1,000 ML IV ONE (18:27)
[2019-06-22] MEDS ORDERED: PROPOFOL 10 MG/ML 20 ML VIAL IV ONE (18:27)
--- NOTE | 2019-06-22 19:30 | P.OP ---
Date of Procedure: 06/22/19 Preoperative Diagnosis: Ectopic Postoperative Diagnosis: Same Procedure(s) Performed: Operative laparoscopy with right salpingectomy, evacuation of hemoperitoneum Anesthesia: GETA Surgeon: Radha Guzman Estimated Blood Loss (ml): 75 IV fluids (ml): 400 Urine output (ml): 50 Pathology: other (Right fallopian tube with products of conception) Condition: stable Disposition: PACU Indications for Procedure: Ectopic Operative Findings: Right fallopian tube enlarged with ectopic normal left fallopian tube Description of Procedure: [facility] and findings of ultrasound were discussed with the patient in detail. Patient was noted to have a beta hCG of 975, findings on ultrasound consistent with left ectopic , complex fluid was noted in the posterior cul-de-sac. Patient's blood type is Rh+. Surgery was reviewed with the patient in detail risks are reviewed including but not limited to bleeding, infection, damage to bladder, bowel, ureteric or other pelvic structures. Patient states understanding of this procedure and the need for it as well. Patient was taken back to the operating suite where general anesthesia was obtained without difficulty by the anesthesia department. She was then prepped and draped in the normal sterile fashion in the dorsal lithotomy position. A regular catheter is used to drain the bladder clear yellow urine. Weighted speculum was placed in the posterior vaginal vault the anterior lip of the cervix is visualized and an acorn uterine manipulator was advanced into the cervix as a means to manipulate the uterus throughout the procedure. Attention was then turned the umbilical fold where a 10 mm skin incision is made this incision appears needles placed. Once the Veress needle is deemed to be in the appropriate position with a drop of CO2 pressure with insufflation of CO2 gas, CO2 insufflation was allowed to occur. At this time the 10 mm trocar and sleeve with a laproscope in place is placed through the skin incision toward the pneumoperitoneum. The above-noted findings are visualized. In the right lower quadrant a 5 mm trocar and sleeve is placed under direct visualization the uterus is elevated and the left ectopic was identified. In the right lower quadrant a 10 mm trocar and sleeve is placed through the skin incision and toward the pneumoperitoneum under direct visualization. The LigaSure is placed through the 5 mm port and the fallopian tube was then transected hemostasis was appreciated. The fallopian tube is placed in an Endo Catch bag and delivered through the left lower quadrant port site. The suction rural route carrier was used to copiously irrigate the pelvis. No bleeding was noted and all instruments removed from the patient's abdomen. The skin incision is closed with 4-0 Vicryl in a septic fashion Steri-Strips and sterile dressings are applied as needed. The acorn uterine manipulator and single-tooth tenaculum is removed without difficulty and hemostasis was appreciated. All counts are correct 2 and patient tolerated procedure well was taken the recovery room awake in stable condition.
[2019-06-22 20:03] VITALS: PULSE 87
[2019-06-22] MEDS ORDERED: LACTATED RINGERS 1,000 ML IV ONE (20:06)
[2019-06-22] MEDS ORDERED: IBUPROFEN IV 800 MG in SODIUM CHLORIDE 0.9% 250 ML IV ONE (20:27)
[2019-06-22 20:40] VITALS: BMI 32.4
[2019-06-22 22:57] VITALS: BP 118/73; RESP 20; TEMP 98.4
== END 2019-06-22 23:26 | disposition home or self-care (01) ==
LOC: EC 15:32 → 6PED 17:46
PROVIDERS: ADMIT Obstetrics & Gynecology Obstetrics; ATTEND Obstetrics & Gynecology Obstetrics
DX: O00.101 Right tubal pregnancy without intrauterine pregnancy (principal); Z80.8 Family history of malignant neoplasm of other organs or systems
CPT/HCPCS: 59151; 99285; 36415; 86900; 86901; 88305; 80053; 85025; 86850; 81001; 84702; 76801; 76817; G0378; J2250; J2405; J3010; J0330; J1741; J2704

== ENCOUNTER → 2019-06-26 | Outpatient (CLI) | payer MEDICAID ==
[2019-06-26 10:51] LABS: HCT 42.7 % (34.0-46.0); HGB 14.5 gm/dL (11.4-16.0); MCHC 33.9 g/dL (31.0-37.0); MCV 85.6 fL (80.0-100.0); Mean Platelet Volume 7.8; Platelet Count 240 k/uL (150-450); RBC 4.98 m/uL (3.80-5.40); RDW 13.2 % (11.5-15.5); WBC 4.1 k/uL (3.8-10.6)
== END | disposition home or self-care (01) ==
LOC: LABWHC1 10:02
PROVIDERS: ATTEND Obstetrics & Gynecology Obstetrics
DX: O00.109 Unspecified tubal pregnancy without intrauterine pregnancy (principal)
CPT/HCPCS: 36415; 84702; 85027

== ENCOUNTER → 2019-07-02 | Outpatient (CLI) | payer MEDICAID | END | disposition home or self-care (01) | LOC: LABWHC1 16:01 | PROVIDERS: ATTEND Obstetrics & Gynecology Obstetrics | DX: O00.90 Unspecified ectopic pregnancy without intrauterine pregnancy (principal) | CPT/HCPCS: 36415; 84702 ==

== ENCOUNTER → 2020-11-13 | Outpatient (CLI) | payer MEDICAID | END | disposition home or self-care (01) | LOC: LABMAIN 00:54 | PROVIDERS: ATTEND Emergency Medicine | DX: Z53.9 Procedure and treatment not carried out, unspecified reason (principal) ==

== ENCOUNTER → 2021-01-30 | Outpatient (CLI) | payer MEDICAID | END | disposition home or self-care (01) | LOC: LABMAIN 23:22 | PROVIDERS: ATTEND Physician Assistant Medical | DX: U07.1 COVID-19 (principal) | CPT/HCPCS: 87635 ==